=== PATIENT | female | born 1940 | race Two or more races ===

== ENCOUNTER 2021-08-02 16:05 | Emergency (ER) | payer OTHER ==
[~2021-08-02] VITALS: Ht 154.9 cm; Wt 60.3 kg
[2021-08-02] MEDS ORDERED: AMLO-212 PO (16:28)
[2021-08-02] MEDS ORDERED: METH500T4 PO (16:28)
[2021-08-02] MEDS ORDERED: METO-358 PO (16:28)
[2021-08-02] MEDS ORDERED: BUPR-53 PO (16:28)
[2021-08-02] MEDS ORDERED: DORZ10DR11 EACHEYE (16:28)
[2021-08-02] MEDS ORDERED: LOSA1TAB39 PO (16:28)
[2021-08-02] MEDS ORDERED: LATA2.5D15 EACHEYE (16:28)
[2021-08-02 16:33] LABS: HEMATOCRIT 41.8 % (31.2-41.9); MEAN CORPUSCULAR HEMOGLOBIN 33.2 uug (24.7-32.8); MEAN CORPUSCULAR VOLUME 96.1 fL (75.5-95.3); PLATELET COUNT (AUTO) 272 K/uL (179-408)
[2021-08-02 16:41] LABS: CREATININE 0.9 mg/dL (0.6-1.3); POTASSIUM 4.2 mmol/L (3.5-5.1)
[2021-08-02 16:53] LABS: BILIRUBIN,TOTAL 0.6 mg/dL (0.2-1.0); TOTAL PROTEIN, SERUM 6.8 g/dL (6.4-8.2)
--- NOTE | 2021-08-02 18:30 | NUR ---
Pt resting with no s/s of distress noted.
--- NOTE | 2021-08-02 18:45 | NUR ---
Pt to be d/c back to [facility], called [facility] for transport, ETA 60 mins.
--- NOTE | 2021-08-02 20:16 | NUR ---
Patient discharged to home in stable condition. Written and verbal after care instructions given. Patient verbalizes understanding of instructions. Stressed follow up or return to ER for worsening s/s. Patient is a/ox4, not in distress, able to walk with steady gait. Patient is taken back to the nursing facility via [facility]
[2021-08-02 20:24] VITALS: BP 147/78
== END 2021-08-02 20:25 | disposition home or self-care (01) ==
LOC: ER 16:15
DX: I10 Essential (primary) hypertension (principal); I25.10 Atherosclerotic heart disease of native coronary artery without angina pectoris; E78.5 Hyperlipidemia, unspecified; Z79.899 Other long term (current) drug therapy
CPT/HCPCS: 36415; 71045; 84484; 85025; 93005; A4663

== ENCOUNTER 2023-04-08 12:10 | Inpatient (IN) | payer MEDICAID, OTHER ==
[~2023-04-08] VITALS: Ht 170.2 cm; Wt 68.2 kg
[~2023-04-08 12:10] MED LIST: AMLO-212 PO; BUPR-53 PO; DORZ10DR11 EACHEYE; LATA2.5D15 EACHEYE; LOSA1TAB39 PO; METH500T4 PO; METO-358 PO
[2023-04-08] MEDS ORDERED: IBUP-2314 PO (12:43)
[2023-04-08] MEDS ORDERED: ATOR20TA PO (12:43)
[2023-04-08] MEDS ORDERED: LOSA1TAB36 PO (12:43)
[2023-04-08] MEDS ORDERED: ESCI20TA PO (12:43)
[2023-04-08 12:53] LABS: BASOPHILS % (AUTO) 0.5 % (0.0-2.0); EOSINOPHILS # (AUTO) 0.1 K/uL (0.0-0.7); EOSINOPHILS % (AUTO) 1.3 % (0.0-7.0); HEMATOCRIT 44.2 % (31.2-41.9); HEMOGLOBIN 15.3 g/dL (10.9-14.3); LYMPHOCYTES # (AUTO) 1.3 K/uL (0.8-4.8); LYMPHOCYTES % (AUTO) 13.2 % (20.5-51.5); MEAN CORPUSCULAR HEMOGLOBIN 32.7 uug (24.7-32.8); MEAN CORPUSCULAR HGB CONC 35 g/dL (32.3-35.6); MEAN CORPUSCULAR VOLUME 94.5 fL (75.5-95.3); MONOCYTES # (AUTO) 0.5 K/uL (0.1-1.30); MONOCYTES % (AUTO) 4.8 % (0.0-11.0); NEUTROPHILS % (AUTO) 80.2 % (38.5-71.5); PLATELET COUNT (AUTO) 270 K/uL (179-408); RED BLOOD CELL COUNT(AUTO) 4.67 MIL/uL (3.63-4.92); RED CELL DISTRIBUTION WIDTH 13.4 % (12.3-17.7)
[2023-04-08 12:57] LABS: DIFFERENTIAL COMMENT 1
[2023-04-08 13:01] LABS: CALCIUM 9.4 mg/dL (8.5-10.1); CARBON DIOXIDE 31 mmol/L (21-32); CHLORIDE 104 mmol/L (98-107); CREATININE 0.9 mg/dL (0.6-1.3); GLUCOSE 139 mg/dL (74-106); POTASSIUM 3.3 mmol/L (3.5-5.1); SODIUM SERUM 141 mmol/L (136-145); UREA NITROGEN, BLOOD 22 mg/dL (7-18)
[2023-04-08 13:07] LABS: ALANINE AMINOTRANSFERASE 22 U/L (14-59); ALBUMIN 3.6 g/dL (3.4-5.0); ALKALINE PHOSPHATASE 88 U/L (50-136); ASPARTATE AMINOTRANSFERASE 17 U/L (15-37); BILIRUBIN,TOTAL 0.7 mg/dL (0.2-1.0); LIPASE 28 U/L (16-77); TOTAL PROTEIN, SERUM 7.3 g/dL (6.4-8.2)
[2023-04-08] MEDS ORDERED: IV NORMAL SALINE 250 ML IV ONE (13:14)
[2023-04-08] MEDS ORDERED: IOHEXOL 300MG/ML 100 ML INFUS..BTL ONE (13:14)
[2023-04-08] MEDS ORDERED: SWABABLE VALVE TRANSFER SET EA MC ONE (13:14)
[2023-04-08] MEDS ORDERED: IV NORMAL SALINE 1000 ML BAG IV ONE (13:15)
[2023-04-08] MEDS ORDERED: MORPHINE SULFATE 2 MG/1 ML DISP.SYRIN IV ONE (13:45)
[2023-04-08] MEDS ORDERED: MORPHINE SULFATE 2 MG/1 ML DISP.SYRIN ONE (14:29)
[2023-04-08] MEDS ORDERED: ONDANSETRON 4 MG/2 ML VIAL IV PRN (15:15)
[2023-04-08] MEDS ORDERED: MAGNESIUM HYDROXIDE 30 ML LIQUID UDC PO PRN (15:15)
[2023-04-08] MEDS ORDERED: POTASSIUM CHLORIDE 20 MEQ TAB.PRT.SR PO ONE (15:15)
[2023-04-08] MEDS ORDERED: HYDROCODONE/APAP 5-325MG TABLET PO PRN (15:15)
[2023-04-08] MEDS ORDERED: REMEDY ESSENTIAL ZINC PASTE 113 GM TP PRN (15:15)
[2023-04-08] MEDS ORDERED: TEMAZEPAM 15 MG CAPSULE PO PRN (15:15)
[2023-04-08 21:00] VITALS: BP 142/78; TEMP 98; O2SAT 98
[2023-04-08] MEDS: HYDROCODONE/APAP 10-325 MG TABLET PO PRN (21:35)
[2023-04-08 22:00] VITALS: BP 132/58; TEMP 97; O2SAT 9; O2SAT 98
[2023-04-09 05:05] VITALS: BP 124/71; TEMP 97.6; O2SAT 98
[2023-04-09 07:14] LABS: EOSINOPHILS # (AUTO) 0.2 K/uL (0.0-0.7); EOSINOPHILS % (AUTO) 1.9 % (0.0-7.0); HEMATOCRIT 41.5 % (31.2-41.9); HEMOGLOBIN 14.3 g/dL (10.9-14.3); LYMPHOCYTES % (AUTO) 10.1 % (20.5-51.5); MEAN CORPUSCULAR HEMOGLOBIN 32.8 uug (24.7-32.8); MEAN CORPUSCULAR HGB CONC 35 g/dL (32.3-35.6); MEAN CORPUSCULAR VOLUME 94.9 fL (75.5-95.3); MONOCYTES # (AUTO) 2.3 K/uL (0.1-1.30); MONOCYTES % (AUTO) 22.6 % (0.0-11.0); NEUTROPHILS # (AUTO) 6.8 K/uL (1.8-8.9); NEUTROPHILS % (AUTO) 65.4 % (38.5-71.5); PLATELET COUNT (AUTO) 220 K/uL (179-408); RED BLOOD CELL COUNT(AUTO) 4.37 MIL/uL (3.63-4.92); RED CELL DISTRIBUTION WIDTH 13.7 % (12.3-17.7); WHITE BLOOD COUNT (AUTO) 10.4 K/uL (3.8-11.8)
[2023-04-09 07:30] LABS: DIFFERENTIAL COMMENT 1
[2023-04-09 07:37] LABS: THYROID STIMULATING HORMONE 3.442 mIU/mL (0.358-3.740)
[2023-04-09 07:58] LABS: CALCIUM 8.9 mg/dL (8.5-10.1); CREATININE 0.9 mg/dL (0.6-1.3); MAGNESIUM 2.1 mg/dL (1.8-2.4); PHOSPHOROUS 3.8 mg/dL (2.5-4.9); POTASSIUM 3.7 mmol/L (3.5-5.1)
[2023-04-09] MEDS: HYDROCODONE/APAP 10-325 MG TABLET PO PRN (09:11)
[2023-04-09 12:00] VITALS: BP 107/62; TEMP 98.2; O2SAT 97
[2023-04-09 12:24] LABS: ANISOCYTOSIS 1+; LYMPHOCYTES % (MANUAL) 9 % (20-40); MONOCYTES % (MANUAL) 13 % (2-10); NEUTROPHILS % (MANUAL) 78 % (42-75); PLATELET ESTIMATE ADEQUATE
[2023-04-09 20:35] VITALS: BP 141/80; TEMP 98.9; O2SAT 98
[2023-04-10 04:39] VITALS: BP 155/72; TEMP 98.8; O2SAT 98
[2023-04-10 11:54] VITALS: BP 173/87; TEMP 98.2; O2SAT 99
[2023-04-10] MEDS: HYDROCODONE/APAP 10-325 MG TABLET PO PRN (12:02)
[2023-04-10 16:40] VITALS: BP 131/83; TEMP 97.5; O2SAT 94
[2023-04-10 20:49] VITALS: BP 144/75; TEMP 97.8; O2SAT 95
[2023-04-11 04:50] VITALS: BP 149/84; TEMP 97.8; O2SAT 99
[2023-04-11 11:55] VITALS: BP 151/89; TEMP 99.5; O2SAT 99
[2023-04-11] MEDS: ACETAMINOPHEN 325 MG TABLET PO PRN (15:24)
[2023-04-11 20:15] VITALS: BP 143/56; TEMP 98.7; O2SAT 97
[2023-04-12] VITALS (8 sets, daily range): BP systolic 139–174; BP diastolic 72–94; TEMP 98–99.4; O2SAT 93–99
[2023-04-12 06:08] LABS: BASOPHILS % (AUTO) 0.3 % (0.0-2.0); EOSINOPHILS # (AUTO) 0.2 K/uL (0.0-0.7); EOSINOPHILS % (AUTO) 1.4 % (0.0-7.0); HEMATOCRIT 45.1 % (31.2-41.9); HEMOGLOBIN 15.8 g/dL (10.9-14.3); LYMPHOCYTES # (AUTO) 1.4 K/uL (0.8-4.8); LYMPHOCYTES % (AUTO) 12.9 % (20.5-51.5); MEAN CORPUSCULAR HEMOGLOBIN 33.1 uug (24.7-32.8); MEAN CORPUSCULAR HGB CONC 35 g/dL (32.3-35.6); MEAN CORPUSCULAR VOLUME 94.9 fL (75.5-95.3); MONOCYTES # (AUTO) 0.8 K/uL (0.1-1.30); NEUTROPHILS # (AUTO) 8.5 K/uL (1.8-8.9); NEUTROPHILS % (AUTO) 78.4 % (38.5-71.5); PLATELET COUNT (AUTO) 242 K/uL (179-408); RED BLOOD CELL COUNT(AUTO) 4.75 MIL/uL (3.63-4.92); RED CELL DISTRIBUTION WIDTH 13.7 % (12.3-17.7); WHITE BLOOD COUNT (AUTO) 10.9 K/uL (3.8-11.8)
[2023-04-12 06:25] LABS: DIFFERENTIAL COMMENT 1
[2023-04-12 06:26] LABS: CARBON DIOXIDE 27 mmol/L (21-32); CHLORIDE 106 mmol/L (98-107); CREATININE 0.8 mg/dL (0.6-1.3); GLUCOSE 108 mg/dL (74-106); MAGNESIUM 2.2 mg/dL (1.8-2.4); PHOSPHOROUS 3.5 mg/dL (2.5-4.9); POTASSIUM 3.7 mmol/L (3.5-5.1); SODIUM SERUM 141 mmol/L (136-145); UREA NITROGEN, BLOOD 23 mg/dL (7-18)
[2023-04-12 10:56] LABS: *BILIRUBIN,URIN NEGATIVE (NEGATIVE); *CLARITY,URINE CLEAR (CLEAR); *COLOR,URINE YELLOW (YELLOW); *KETONES,URINE TRACE (NEGATIVE); *PROTEIN,URINE 2+ (NEGATIVE); *UROBILINOGEN,URINE 0.2 E.U./dl (NORMAL); LEUKOCYTE ESTERASE ,URINE 1+ (NEGATIVE); NITRITE, URINE POSITIVE (NEGATIVE); PH,URINE 5.5 (5.0-8.0); UGLUCOSE NEGATIVE (NEGATIVE)
[2023-04-12 10:58] LABS: *BLOOD, URINE TRACE (NEGATIVE)
[2023-04-12 11:20] LABS: BACTERIA,URINE MODERATE /HPF (NONE SEEN); SQUAMOUS EPITHELIAL CELL,UR FEW /HPF (NONE SEEN); WBC,URINE 20-50 /HPF (0-3)
[2023-04-12] MEDS ORDERED: hydrALAZINE HCL 25 MG TABLET PO PRN (20:45)
[2023-04-12] MEDS: METOPROLOL TARTRATE 25 MG TABLET PO SCH (20:47)
[2023-04-13 04:40] VITALS: BP 156/92; TEMP 99.6; O2SAT 97
[2023-04-13] MEDS: ACETAMINOPHEN 325 MG TABLET PO PRN (04:41)
[2023-04-13 08:41] VITALS: BP 113/82; TEMP 98.8; O2SAT 97
[2023-04-13] MEDS: METOPROLOL TARTRATE 25 MG TABLET PO SCH (08:44)
[2023-04-13] MEDS ORDERED: HYDROCHLOROTHIAZIDE 12.5 MG CAPSULE PO SCH (09:00)
[2023-04-13 11:08] VITALS: BP 114/71; TEMP 97.8; O2SAT 97
[2023-04-13 14:36] VITALS: BP 113/69; TEMP 97.9; O2SAT 98
[2023-04-13] MEDS ORDERED: NITR100C6 PO (16:25)
[2023-04-13] MEDS ORDERED: NITROFURANTOIN/NITROFURAN MAC 100 MG CAPSULE PO SCH (16:30)
[2023-04-13] MEDS ORDERED: ENSURE ENLIVE (VAN) 240 ML LIQUID PO SCH (17:00)
== END 2023-04-13 16:55 | DRG 135 ==
LOC: ER 12:12 → MEDSURG3 20:34
PROVIDERS: ADMIT Nurse Practitioner Acute Care; ATTEND Nurse Practitioner Acute Care
DX: S22.41XA Multiple fractures of ribs, right side, initial encounter for closed fracture (principal); E78.5 Hyperlipidemia, unspecified; I10 Essential (primary) hypertension; N39.0 Urinary tract infection, site not specified; W06.XXXA Fall from bed, initial encounter; Y93.9 Activity, unspecified; Y92.092 Bedroom in other non-institutional residence as the place of occurrence of the external cause; B96.89 Other specified bacterial agents as the cause of diseases classified elsewhere; F32.A Depression, unspecified; I25.10 Atherosclerotic heart disease of native coronary artery without angina pectoris; H40.9 Unspecified glaucoma; Z79.899 Other long term (current) drug therapy; Z88.2 Allergy status to sulfonamides; Z88.1 Allergy status to other antibiotic agents; R94.31 Abnormal electrocardiogram [ECG] [EKG]
CPT/HCPCS: 36415; 70030-TC; 71045; 71250; 71260; 83690; 83735; 84100; 84443; 84484; 85025; 85610; 85730; 93005; A4663; G0378; J2270; Q9967